=== PATIENT | male | born 1955 | race Caucasian/White ===

== ENCOUNTER 2023-10-17 09:37 | Outpatient (CLI) | payer MEDICARE, OTHER, SELFPAY ==
--- OUTSIDE RECORDS SUMMARY | 2023-10-17 10:19 | XMS RPT_ITS | CCD ---
Author Name Unknown Address [address] [place] [address] [facility] Team Providers Care E Commerce Retailer Name Role Phone Norma Guerrier Unavailable Mila Villaseñor Unavailable Norma Guerrier Unavailable Unavailable MILA VILLASEÑOR Unavailable Unavailab NORMA Lopez Unavailable Unavailable CILIBERTOLINDAEDIS L Unavailable Unavailable TOMNORMA DOCKERY Unavailable Unavailable JODY, TAMELA Unavailable Unavailable TOMCHAKNORMA Unavailable Unavailable COFFING, BALA Unavailable Unavailable TOMCHANORMA Calderon Unavailable Unavailable JODY, TAMELA Unavailable Unavailable TOMCHAKNORMA Unavailable Unavailable JODY, TAMELA Unavailable Unavailable TOMNORMA DOCKERY Unavailable Unavailable SUMAN, MARGO Unavailable Unavailable TOMNORMA DOCKERY Unavailable Unavailable FANPRASHANTH, FRANCISCO JAVIER K Unavailable Unavailable TOMNORMA DOCKERY Unavailable Unavailable FANPRASHANTH, FRANCISCO JAVIER K Unavailable Unavailable NORMA GUERRIER Unavailable Unavailable Mila Villaseñor Unavailable Unavailable Mila Villaseñor Unavailable Unavailable Mila Villaseñor Unavailable Unavailable Mila Villaseñor Unavailable Unavailable Mila Villaseñor Unavailable Unavail le Unavailable Primary Care Provider UnavailNorma Finnegan Primary Care Provider Mila Villaseñor Unavailable [phone] Norma Guerrier Primary Care Provider MILA VILLASEÑOR Attending UnavailNORMA Felix Primary Care Unavailable MILA VILLASEÑOR Attending Unavailab NORMA Lopez Primary Care Unavailable MILA VILLASEÑRO Attending NORMA Delgado Primary Care Unavailable MILA VILLASEÑOR Attending NORMA Delgado Primary Care Unavailable Free, Text Entry Unavailable Mirta Johnson, Dr. Norma Matute Primary Care Unavailbenito Guerrier, Dr. Norma Matute Attending Jose Guerrier, Dr. Norma Matute Primary Care Unavaila lacy Rodriguez, Ms. Mirta Nunn Attending Tayla ashby Pending, Provider Primary Care Unavailable Amira, Angel Pepe Attending Un matthew Guerrier, Dr. Norma Matute Primary Care Unavaila lacy Guerrier, Dr. Norma Matute Attending [facility] lacy Medications Current Medications Medication Drug Class(es) Dates Sig (Normalized) Sig (Original) acetaminophen 325 mg / oxyCODONE hydrochloride 5 mg oral tablet (5 sources) Opioid Agonist Start: 07-28-2017 take 1 tablet by mouth every four hours as needed oxyCODONE-acetamin ophen (PERCOCET) 5-325 mg per tablet Take 1 tablet by mouth every 4 (four) hours as needed. 1-2 tablets every 4 -6 HRS PRN 0 07/28/2017 Active ascorbic acid 250 mg / folic acid 1 mg / iron carbonyl 100 mg / vitamin b12 0.025 mg oral tablet (1 source) Vitamin B12, Vitamin C take 1 tablet by mouth once daily Iron 100 Plus oral tablet ; 1 tab(s) orally once a day Quantity: 0 Refills: 0 Ordered: 04-Feb-2020 Mckenzie Pink Status: Other Generic Substitution Allowed aspirin 325 mg delayed release oral tablet (5 sources) Nonsteroidal Anti-inflammatory Drug Start: 07-27-2017 take 1 tablet by mouth once daily aspirin 325 MG EC tablet Take 325 mg by mouth daily. 0 07/27/2017 Active ferrous sulfate 325 mg oral tablet (7 sources) Start: 07-27-2017 take 1 tablet by mouth once daily at breakfast ferrous sulfate 325 (65 FE) MG tablet Take 325 mg by mouth daily with breakfast. 0 07/27/2017 Active Completed/Discontinued Medications Medication Drug Class(es) Dates Sig (Normalized) Sig (Original) doxycycline hyclate 100 mg oral tablet (1 source) Tetracycline-clas s Drug Start: 12-13-2021 End: 12-19-2021 take 1 tablet by mouth twice daily doxycycline hyclate 100 mg oral tablet ; 1 tab(s) orally 2 times a day Quantity: 14 Refills: 0 Ordered: 13-Dec-2021 Angel Collier Start: 13-Dec-2021 End: 19-Dec-2021 Status: Other Generic Substitution Allowed Comments: Avoid prolonged or excessive exposure to direct and/or artificial sunlight while taking this medication.Do not take this drug if you are .Finish all this medication unless otherwise directed by prescriber.Medicat ion should be taken with plenty of water. Problems Active Problems Problem Classification Problem Date Documented Da te Episodic/Chronic Headache; including migraine (1 source) Headache; including migraine; Translations: [Headache, unspecified] Onset: 12-13-2021 Joint disorders and dislocations; trauma-related (1 source) Derangement of medial meniscus of right knee; Translations: [Meniscus, medial, derangement, right] Osteoarthritis (4 sources) Unilateral primary osteoarthritis, left hip; Translations: [Arthritis of hip] Onset: 07-24-2017 Chronic Other aftercare (2 sources) Aftercare following joint replacement surgery; Translations: [Aftercare following joint replacement surgery] Onset: 07-28-2017 Chronic Other connective tissue disease (2 sources) Presence of left artificial hip joint; Translations: [Presence of left artificial hip joint] Onset: 07-28-2017 Chronic Other upper respiratory infections (1 source) Chronic sinusitis, unspecified; Translations: [Chronic sinusitis, unspecified] Onset: 12-13-2021 Chronic Residual codes; unclassified (1 source) Obstructive sleep apnea syndrome Chronic Residual codes; unclassified (1 source) Edema of lower leg ; Translations: [Edema] 02-11-2022 Episodic Sprains and strains (1 source) Strain of knee; Translations: [Sprains and strains of unspecified site of knee and leg] 02-11-2022 Episodic Unclassified (1 source) Injury of right lower leg; Translations: [Injury of right lower leg, initial encounter] Unclassified (1 source) Contusion of right knee; Translations: [Contusion of right knee, initial encounter] Unclassified (2 sources) [facility]. LEFT KNEE INJURY 02-11-2022 Past or Other Problems Problem Classification Problem Date Documented Da te Episodic/Chronic Other upper respiratory disease (1 source) Nasal congestion; Translations: [Nasal congestion] Onset: 12-13-2021 Episodic Residual codes; unclassified (2 sources) Localized edema; Translations: [Localized edema] Onset: 02-28-2022 Episodic Residual codes; unclassified (2 sources) Edema, unspecified; Translations: [Edema, unspecified] Onset: 02-21-2022 Episodic Unclassified (2 sources) Status post hip replacement, left Unclassified (1 source) Patient encounter status Results Test Name Value Interpretation Reference Range Facil ity Vital Signs Date Time Vital Sign Value Performing Clinician Facility 02-11-2022 12:20-0400 Body height 185.4 cm Text Entry Free [facility] 02-11-2022 12:20-0400 Body temperature 97.34 [degF] Text Entry Free [facility] 02-11-2022 12:20-0400 Diastolic blood pressure 80 mm[Hg] Text Entry Free [facility] 02-11-2022 12:20-0400 Heart rate 78 /min Text Entry Free [facility] 02-11-2022 12:20-0400 SaO2% (BldA) [Mass fraction] 98 % Text Entry Free [facility] 02-11-2022 12:20-0400 Systolic blood pressure 156 mm[Hg] Text Entry Free [facility] 03-27-2020 14:55-0400 BMI (Body Mass Index) 38.92 kg/m2 Milaambika Villaseñor [facility] 03-27-2020 14:55-0400 Body weight 133.81 kg Milaambika Villaseñor [facility] 03-27-2020 14:55-0400 Height 185.4 cm Milaambika Villaseñor [facility] 08-14-2017 08:41-0500 BMI (Body Mass Index) 38 kg/m2 Mila Villaseñor [facility] Work Phone: 08-14-2017 08:41-0500 Height 185.4 cm Mila Villaseñor [facility] Work Phone: 08-14-2017 08:41-0500 Weight 130.64 kg Milaambika Villaseñor [facility] Work Phone: 06-27-2017 10:17-0400 BMI (Body Mass Index) 38.42 kg/m2 Luc Vidal [facility] Work Phone: 06-27-2017 10:17-0400 BP Diastolic 90 mm[Hg] Luc Vidal [employer] Work Phone: 06-27-2017 10:17-0400 BP Systolic 144 mm[Hg] Luc Vidal [employer] Work Phone: 06-27-2017 10:17-0400 Height 185.4 cm Luc Vidal [employer] Work Phone: 06-27-2017 10:17-0400 Pulse (Heart Rate) 56 /min Luc Vidal [employer] Work Phone: 06-27-2017 10:17-0400 Pulse Oximetry 95 % Luc Vidal [employer] Work Phone: 06-27-2017 10:17-0400 Weight 132.09 kg Luc Vidal [employer] Work Phone: 04-24-2017 08:03-0400 BMI (Body Mass Index) 37.6 kg/m2 Mila Villaseñor [employer] Work Phone: 04-24-2017 08:03-0400 BP Diastolic 88 mm[Hg] Mila Villaseñor [employer] Work Phone: 04-24-2017 08:03-0400 BP Systolic 154 mm[Hg] Mila Villaseñor [employer] Work Phone: 04-24-2017 08:03-0400 Height 185.4 cm Mila Villaseñor [employer] Work Phone: 04-24-2017 08:03-0400 Pulse (Heart Rate) 54 /min Mila Villaseñor [employer] Work Phone: 04-24-2017 08:03-0400 Weight 129.28 kg Mila Villaseñor [employer] Work Phone: Encounters Encounter Date Encounter Type Care Provider Facility Start: 02-28-[address] Norma Guerrier Facility:[id number] Start: 02-21-[address] Norma Guerrier Facility:[id number] Start: 02-11-2022 End: 02-11-2022 Emergency department patient visit Mirta Rodriguez [facility] Start: 12-13-2021 End: 12-13-2021 Emergency department patient visit Provider Pending Facility:[id number] Start: 07-14-2021 ambulatory MILA VILLASEÑOR [facility] Start: 12-16-2020 ambulatory MILA DALIA VILLASEÑOR [facility] Start: 11-19-2020 End: 11-19-2020 Orders Only Sarah Garcia Work Phone: [facility] Start: 10-02-2020 ambulatory MILA DALIA VILLASEÑOR [facility] Start: 08-31-2020 ambulatory MILA VILLASEÑOR [facility] Start: 03-27-2020 End: 03-27-2020 Office outpatient new 20 minutes Brefredy Dooley Work Phone: [facility] Procedures Date Procedure Procedure Detail Performing Clinician Start: 08-20-2018 End: 08-20-2018 Radex hip unilateral with pelvis 2-3 views Mila Villaseñor Work Phone: Plan of Treatment Date Care Activity Detail Author Start: 05-19-2020 Influenza vaccination given Sequential Influenza Vaccine (#1) [facility] Start: 07-30-2018 Ambulatory 07/30/2018 Office Visit Mila Echeverria MD [address] [address] [phone] [facility] Start: 05-19-2018 Influenza vaccination SEQUENTIAL INFLUENZA VACCINE (#1) [facility] Start: 09-04-2017 Ambulatory 09/04/2017 Follow-Up Mila Echeverria MD [address] [place] [address] [phone] [facility] Start: 08-15-2017 Ambulatory 08/15/2017 Office Visit Home Health Services Francisco Javier Garvey RN [facility] Start: 07-27-2017 Ambulatory 07/27/2017 Scanned Document Mila Echeverria MD [address] [place], [place] [id number] [facility] Start: 07-27-2017 Inpatient Encounter 07/27/2017 Hospital Encounter Mila Villaseñor MD [address] [address] [phone] [facility] Start: 07-17-2017 Ambulatory 07/17/2017 Surgical Consult Sports Medicine Mila Villaseñor MD [address] [address] [phone] [facility] Start: 2017 Zoster vacc, sc ZOSTER VACCINE [facility] Work Phone: Start: 05-19-2017 Influenza vaccination SEQUENTIAL INFLUENZA VACCINE (#1) [facility] Work Phone: Start: 05-19-2017 SEQUENTIAL INFLUENZA VACCINE (#1) SEQUENTIAL INFLUENZA VACCINE (#1) [facility] Work Phone: Start: 2007 Administration of herpes zoster vaccine Zoster Vaccines (1 of 2) [facility] Start: 2007 Screening for malignant neoplasm of colon [facility] Start: 2007 ZOSTER VACCINES (1 of 2) ZOSTER VACCINES (1 of 2) [facility] Start: 1975 Hepatitis C antibody, confirmatory test Hepatitis C Screening [facility] Start: 1973 COVID-19 Vaccine (1 of 2) COVID-19 Vaccine (1 of 2) [facility] Start: 1972 HIV screening HIV Screening [facility] Start: 1969 Adolescent depression screening assessment Depression Screening (PHQ9) [facility] Start: 1960 History and physical examination, annual for health maintenance Wellness Visit [facility] Start: 1957 Colonoscopy COLONOSCOPY [facility] Work Phone: Start: 1957 Depression screening using PHQ-9 (Patient Health Questionnaire 9) score Depression Screening (PHQ9) [facility] Start: 1957 Prostate specific antigen measurement PSA Level [facility] Start: 1957 Screening for malignant neoplasm of colon Colorectal Cancer Screening: Colonoscopy [facility] Start: 1957 TETANUS EVERY 10 YR TETANUS EVERY 10 YR [facility] Work Phone: Start: 1957 End: 1957 HEPATITIS C SCREENING HEPATITIS C SCREENING [facility] Work Phone: Start: 1957 Screening colonoscopy COLONOSCOPY [facility] Work Phone: Start: 1957 End: 1957 Tetanus vaccination [facility] Work Phone: Payers Date Payer Category Payer Worker's Compensation [employer]ER[employer] [id number] 2020-Present [id number] 2020 Worker's Compensation [id number] 2017 Unknown MMO MED M[employer] S UPER[employer] PPO [id number] 2017-Present [id number] 2017 Unknown [id number] 2016 Private Health Insurance [id number] 1957 Unknown [id number] 1957 Unknown [id number] 1957 Unknown [id number] 1957 Unknown [id number] 903 1957 Unknown [id number] 1957 Unknown [id number] 1069 1957 Unknown [id number] 1069 1957 Unknown [id number] Unknown INDUSTRIAL\INDUSTRIAL Unknown [id number] Social History Date Type Detail Facility Start: 09-04-2017 End: 03-27-2020 Tobacco smoking status NHIS Never smoker [facility] Work Phone: Sex Assigned At Not on file [facility] Work Phone: Start: 03-27-2020 Alcohol intake Current non-dr credit intern of alcohol (finding) [facility] Exposure to SARS-CoV-2 (event) Not sure [facility] Start: 03-27-2020 Tobacco use and exposure Never used [facility] Tobacco smoking consumption unknown [facility] Progress note 09-02-2021 Note Date & Type Note Facility 09-02-2021 Note HNO ID: [id number] Author: Berny Carpenter II, OD Service: ? 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 Replace worn glasses as desired. H25.13 Nuclear sclerotic cataract of both eyes Comment: Trace cataract in both eyes. Well tolerated at this time. Monitor as instructed. H04.123 Dry eye syndrome of bilateral lacrimal glands Comment: Recommend use of Systane Complete 1 gt OU up to qid as needed for relief of symptoms. I have confirmed and edited as necessary the relevant ophthalmic history, ROS, and the neuro exam findings as obtained by others. I have seen and examined John E Abelino. I have discussed the case and the management of this patient's care with the Resident/Fellow, if applicable. I also have reviewed and agree with the assessment and plan as stated above and agree with all of its relevant components. Berny Carpenter II, OD [facility] Assessments Diagnosis Status post hip replacement, left - Primary Diagnosis Status post hip replacement, left - Primary Diagnosis RAO (obstructive sleep apnea ) - Primary Obstructive sleep apnea (adult) (pediatric) Preoperative examination Unspecified pre-operative examination Diagnosis Status post hip replacement, left - Primary Diagnosis Arthritis of left hip - Prim huber Diagnosis Injury of right lower leg, initial encounter Contusion of right knee, initial encounter Meniscus, medial, derangement, right Summary Purpose Family History No Family History Records FoundNo Family History Records FoundNo Family History Records FoundNo Family History Records FoundNo Family History Records Found Advance Directives No Advanced Directives Records FoundDocuments on File Type Date Recorded Patient Senior Planning Analyst Expl anation Advance Directives and Living Will Reason for Referral Status Reason Specialty Diagnoses / Procedures Referred By Contact Referred To Contact Closed Specialty Services Required/Patient 's Best Interest Cardiology Diagnoses Preoperative examination Mila Villaseñor MD [address] [place] [address] History of Present Illness * Luc Vidal, DO - 06/27/2017 10:43 AM EDT Formatting of this note may be different from the original. OFFICE CONSULTATION NOTE [facility] [address] [place] [address] [facility] [address] [facility] [id number] Subjective: John Roca is a 62 y.o. male seen in the office today for Pre-op Exam (Pt is here for a pre-opclearance for a L TKR. Sx date 07/27/17/Kasi. 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 He is in need of a hip replacement. He has severe pain in the left hip. He denies chest pain, chest pressure, palpitations, syncope, nursing, diaphoresis, ankle edema, orthopnea proximal dyspnea. He is able to exert himself to 7 mets without symptoms. EKG shows mild sinus bradycardia heart rate 58 bpm. Is otherwise normal. Assessment & Plan: Low risk for proposed surgery. No further cardiac testing indicated at this time. I be happy to seehim postop if needed. Borderline hypertension. This may be related to increased weight from his decreased activity with his pain. They also may be a component from sleep apnea. I recommended he follow-up with Dr. Isidoro luke to arrange for sleep study. I reviewed with him diet. Once he is through with surgery exercise will increase. If blood pressure remains above 140/90 recommend the use of an angiotensin receptor jazmine or low-dose diuretic for blood pressure treatment. Low-sodium diet is also recommended. Histories: History reviewed. No pertinent past medical history. History reviewed. No pertinent surgical history. Family History Problem Relation Age of Onset Heart attack Mother Heart disease Father Social History Substance Use Topics Smoking status: Never Smoker Smokeless tobacco: Never Used Alcohol use No Current Outpatient Prescriptions on File Prior to Visit Medication Sig meloxicam (MOBIC) 15 MG tablet traMADol (ULTRAM) 50 mg tablet No current facility-administered medications on file prior to visit. No Known Allergies Review of Systems Constitution: Negative for diaphoresis, malaise/fatigue, weight gain and weight loss. HENT: Negative for hearing loss, nosebleeds and tinnitus. Eyes: Negative for blurred vision and visual disturbance. Cardiovascular: Negative for chest pain, claudication, cyanosis, dyspnea on exertion, irregular heartbeat, leg swelling, near-syncope, orthopnea, palpitations, paroxysmal nocturnal dyspnea and syncope. Respiratory: Positive for sleep disturbances due to breathing. Negative for hemoptysis, shortness of breath and snoring. Endocrine: Negative for cold intolerance and heat intolerance. Hematologic/Lymphatic: Does not bruise/bleed easily. Skin: Negative for flushing, poor wound healing and rash. Musculoskeletal: Positive for joint pain. Negative for back pain, muscle weakness and myalgias. Gastrointestinal: Negative for abdominal pain, change in bowel habit, melena, nausea and vomiting. Genitourinary: Negative for hematuria. Neurological: Negative for loss of balance and numbness. Psychiatric/Behavioral: Negative for memory loss. The patient is not nervous/anxious. Objective: Vitals: BP (!) 144/90 Pulse (!) 56 Ht 6' 1 Wt 132.1 kg (291 lb 3.2 oz) SpO2 95% BMI 38.42 kg/m2 Physical Exam Constitutional: He is oriented to person, place, and time. He appears well- developed and well-nourished. No distress. Moderate obesity. HENT: Head: Normocephalic. Mouth/Throat: Oropharynx is clear and moist. Eyes: Conjunctivae and lids are normal. Neck: No JVD present. Carotid bruit is not present. Cardiovascular: Normal rate, regular rhythm, normal heart sounds, intact distal pulses and normal pulses. Exam reveals no gallop. No murmur heard. Pulmonary/Chest: Effort normal and breath sounds normal. Abdominal: Soft. Bowel sounds are normal. He exhibits no mass. There is no hepatosplenomegaly. There is no tenderness. Musculoskeletal: Normal range of motion. He exhibits no edema. Neurological: He is alert and oriented to person, place, and time. Gait normal. Skin: Skin is warm and intact. No rash noted. Psychiatric: He has a normal mood and affect. His behavior is normal. Vitals reviewed. EKG Interpretation: unchanged from previous tracings, sinus bradycardia. SNOMED CT(R) 1. RAO (obstructive sleep apnea) OBSTRUCTIVE SLEEP APNEA SYNDROME 2. Preoperative examination PATIENT ENCOUNTER STATUS Ambulatory referral to Cardiology ECG 12 Lead in this encounter* Mila Villaseñor MD - 08/20/2018 11:55 AM EST Dictation on: 08/20/2018 11:56 AM by: MILA VILLASEÑOR [[id number]] in this encounter* Mila Villaseñor MD - 04/24/2017 11:30 AM EDT Dictation on: 04/24/2017 11:32 AM by: MILA VILLASEÑOR [[id number]] in this encounter* Mila Villaseñor MD - 03/27/2020 5:06 PM EDT Dictation on: 03/27/2020 5:09 PM by: MILA VILLASEÑOR [[id number]] documented in this encounter Additional Source Comments (unrecognized sect ion and content) No Status Records FoundNo Status Records FoundNo Status Records FoundNo Status Records FoundNo Status Records Found INFORMATION SOURCE (unrecogn ized section and content) DATE CREATED AUTHOR AUTHOR'S ORGANIZ ATION 03/13/2018 [facility] DATE CREATED AUTHOR AUTHOR'S ORGANIZ ATION 08/14/2021 [facility] DATE CREATED AUTHOR AUTHOR'S ORGANIZ ATION 12/08/2021 [facility] DATE CREATED AUTHOR AUTHOR'S ORGANIZ ATION 12/02/2022 [facility] Reason for Visit (unrecogniz ed section and content) Status Reason Specialty Diagnoses / Procedures Referred By Contact Referred To Contact Closed Specialty Services Required/Patient 's Best Interest Cardiology Diagnoses Preoperative examination Mila Villaseñor MD [address] [place] [id number] Reason Comments Follow-up Reason Comments Pain Status Reason Specialty Diagnoses / Procedures Referred By Contact Referred To Contact Closed Sports Medicine Diagnoses Injury of right lower leg, initial encounter Contusion of right knee, initial encounter Sprain of other specified parts of right knee, initial encounter Bre Dooley, CUSTOMER CARE ASSOCIATE [address] [place] [id number] Mila Villaseñor MD [address] [place] [id number] <item> Privacy Markings (unrecogniz ed section and content) Section Author: Yovana Mckenna PROHIBITION ON REDISCLOSURE OF CONFIDENTIAL INFORMATION This notice accompanies a disclosure of information concerning a client made to you with the consent of such client. FOR RECORDS PERTAINING TO PATIENTS WHO ARE OR HAVE BEEN ENROLLED IN A CHEMICAL DEPENDENCY/SUBSTANCEABUSE PROGRAM, SOME INFORMATION MAY BE OMITTED. This clinical summary was aggregated from multiple sources. Caution should be exercised in using it in the provision of clinical care. This summary normalizes information from multiple sources, and as a consequence, information in this document may materially change the coding, format and clinical context of patient data. In addition, data may be omitted in some cases. CLINICAL DECISIONS SHOULD BE BASED ON THE PRIMARY CLINICAL RECORDS. [email or web address] provides no warranty or guarantee of the accuracy or completeness of information in this document.
[2023-10-17 12:12] LABS: Absolute Lymphocyte Count 1.27 X10^3/uL (0.83-4.51); Absolute Neutrophil Count 3.1 X10^3/uL (2.0-7.7); Basophil# 0.07 X10^3/uL; Basophil% 1.3 % (0-1); Eosinophil# 0.18 X10^3/uL; Eosinophils% 3.4 % (0-5); Hematocrit 42.9 % (40-54); Hemoglobin 13.8 g/dL (13.0-16.5); Lymphocyte # 1.27 X10^3/ul (0.83-4.51); Lymphocyte % 24.1 % (19-41); Mean Corp Hgb Conc 32.2 g/dL (32-36); Mean Corpuscular Hgb 27.3 pg (27.0-32.0); Mean Platelet Vol. 10.3 fl (6.2-12.0); Monocyte# 0.66 X10^3/uL; Monocyte% 12.5 % (0-10); NRBC Flagged by Analyzer 0 % (0-5); Neutrophil # 3.07 X10^3/uL (2.7-7.7); Neutrophil % 58.1 % (47-70); Platelet Count 179 K/mm3 (150-450); RBC Distribution Width CV 13.3 % (11.6-14.6); RBC Distribution Width SD 41.4 fl (35.1-43.9); Red Blood Count 5.05 M/mm3 (4.6-6.2); White Blood Count 5.3 K/mm3 (4.4-11.0)
[2023-10-17 13:02] LABS: AST(SGOT) 21 U/L (15-37); Alanine Aminotransfer ALT/SGPT 28 U/L (16-61); Albumin, Serum 3.8 g/dL (3.2-5.0); Alkaline Phosphatase 80 U/L (45-117); Anion Gap 5 (5-15); BUN 16 mg/dL (7-18); BUN/Creat Ratio 14.4 RATIO (10-20); Calcium,Total 9.4 mg/dL (8.5-10.1); Chloride 108 mmol/L (98-107); Cholesterol 151 mg/dL (200); Creatinine, Serum 1.11 mg/dL (0.70-1.30); EST Glomerular Filtration Rate 70 mL/min (>60); Est Glom Filt Rate - Afr Amer 85 mL/min (>60); Globulin 3.8 g/dL (2.2-4.2); Glucose 109 mg/dL (74-106); High Density Lipoprotein 63 mg/dL; PSA,Total- Diagnostic 0.84 ng/mL (0.0-4.0); Potassium 4.5 mmol/L (3.5-5.1); Protein, Total 7.6 g/dL (6.4-8.2); Sodium Level 139 mmol/L (136-145); Thyroid Stim Hormone (TSH) 1.91 uIU/mL (0.358-3.74); Triglycerides 77 mg/dL; Very Low Density Lipoprotein 15 mg/dL (5-40)
== END 2023-10-17 23:59 | disposition home or self-care (01) ==
LOC: BIMLAB 09:40
PROVIDERS: PCP Internal Medicine; Referring Provider Internal Medicine; Visit Provider Internal Medicine
DX: N52.9 Male erectile dysfunction, unspecified (principal); I10 Essential (primary) hypertension; E78.2 Mixed hyperlipidemia; Z12.5 Encounter for screening for malignant neoplasm of prostate
CPT/HCPCS: 36415; 80053; 80061; 84153; 84443; 85025

== ENCOUNTER → 2024-04-09 | Outpatient (CLI) | payer MEDICARE, OTHER, SELFPAY ==
[2024-04-09 11:55] LABS: Absolute Lymphocyte Count 1.41 X10^3/uL (0.83-4.51); Absolute Neutrophil Count 3.1 X10^3/uL (2.0-7.7); Basophil# 0.08 X10^3/uL; Basophil% 1.5 % (0-1); Eosinophil# 0.15 X10^3/uL; Eosinophils% 2.8 % (0-5); Hematocrit 42.1 % (40-54); Hemoglobin 13.5 g/dL (13.0-16.5); Lymphocyte # 1.41 X10^3/ul (0.83-4.51); Lymphocyte % 26.2 % (19-41); Mean Corp Hgb Conc 32.1 g/dL (32-36); Mean Corpuscular Hgb 27.2 pg (27.0-32.0); Mean Corpuscular Volume 84.9 fL (80-94); Mean Platelet Vol. 10.1 fl (6.2-12.0); Monocyte# 0.57 X10^3/uL; Monocyte% 10.6 % (0-10); NRBC Flagged by Analyzer 0 % (0-5); Neutrophil # 3.14 X10^3/uL (2.7-7.7); Neutrophil % 58.3 % (47-70); Platelet Count 208 K/mm3 (150-450); RBC Distribution Width CV 13.5 % (11.6-14.6); RBC Distribution Width SD 41.8 fl (35.1-43.9); Red Blood Count 4.96 M/mm3 (4.6-6.2); White Blood Count 5.4 K/mm3 (4.4-11.0)
[2024-04-09 12:40] LABS: AST(SGOT) 27 U/L (15-37); Alanine Aminotransfer ALT/SGPT 27 U/L (16-61); Albumin, Serum 3.8 g/dL (3.2-5.0); Alkaline Phosphatase 83 U/L (45-117); Anion Gap 5 (5-15); BUN 22 mg/dL (7-18); BUN/Creat Ratio 19.1 RATIO (10-20); Calcium,Total 9.5 mg/dL (8.5-10.1); Chloride 106 mmol/L (98-107); Creatinine, Serum 1.15 mg/dL (0.70-1.30); EST Glomerular Filtration Rate 68 mL/min (>60); Est Glom Filt Rate - Afr Amer 82 mL/min (>60); Globulin 3.8 g/dL (2.2-4.2); Glucose 118 mg/dL (74-106); Potassium 3.9 mmol/L (3.5-5.1); Protein, Total 7.6 g/dL (6.4-8.2); Sodium Level 139 mmol/L (136-145)
[2024-04-13 11:08] LABS: Testosterone, % Free 2.49 % (1.50-4.20); Testosterone, Free 7.64 ng/dL (5.00-21.00); Testosterone, Total 307 ng/dL (264-916)
== END | disposition home or self-care (01) ==
LOC: BIMLAB 09:11
PROVIDERS: PCP Internal Medicine; Referring Provider Nurse Practitioner; Visit Provider Nurse Practitioner
DX: N52.9 Male erectile dysfunction, unspecified (principal); I10 Essential (primary) hypertension; G47.30 Sleep apnea, unspecified
CPT/HCPCS: 36415; 80053; 84402; 84403; 85025

== ENCOUNTER → 2025-01-27 | Outpatient (CLI) | payer MEDICARE, OTHER, SELFPAY ==
[2025-01-27 12:38] LABS: Absolute Lymphocyte Count 1.26 X10^3/uL (0.83-4.51); Absolute Neutrophil Count 2.8 X10^3/uL (2.0-7.7); Basophil# 0.05 X10^3/uL; Eosinophil# 0.13 X10^3/uL; Eosinophils% 2.7 % (0-5); Hematocrit 40.8 % (40-54); Hemoglobin 13.2 g/dL (13.0-16.5); Lymphocyte # 1.26 X10^3/ul (0.83-4.51); Lymphocyte % 25.8 % (19-41); Mean Corp Hgb Conc 32.4 g/dL (32-36); Mean Corpuscular Hgb 27.4 pg (27.0-32.0); Mean Corpuscular Volume 84.6 fL (80-94); Mean Platelet Vol. 10.2 fl (6.2-12.0); Monocyte# 0.63 X10^3/uL; Monocyte% 12.9 % (0-10); NRBC Flagged by Analyzer 0 % (0-5); Neutrophil % 57.2 % (47-70); Platelet Count 169 K/mm3 (150-450); RBC Distribution Width CV 13.6 % (11.6-14.6); RBC Distribution Width SD 42.2 fl (35.1-43.9); Red Blood Count 4.82 M/mm3 (4.6-6.2); White Blood Count 4.9 K/mm3 (4.4-11.0)
[2025-01-27 12:53] LABS: ALB/GLOB Ratio 1.4 RATIO (0.9-2.4); AST(SGOT) 27 U/L (<=37); Alanine Aminotransfer ALT/SGPT 20 U/L (<=46); Albumin, Serum 4.2 g/dL (3.4-4.8); Alkaline Phosphatase 76 U/L (40-129); Anion Gap 11 (5-15); BUN 18 mg/dL (4-19); BUN/Creat Ratio 20.2 RATIO (10-20); Calcium,Total 9.3 mg/dL (7.6-11.0); Carbon Dioxide 22.2 mmol/L (21.0-32.0); Chloride 108 mmol/L (98-108); Cholesterol 136 mg/dL (<=200); Creatinine, Serum 0.87 mg/dL (0.70-1.20); EST Glomerular Filtration Rate 95 (>60); Globulin 2.9 g/dL (2.2-4.2); Glucose 117 mg/dL (70-99); High Density Lipoprotein 54 mg/dL; Low Density Lipoprotein Calc. 69 mg/dL; Potassium 4.5 mmol/L (3.3-5.1); Sodium Level 141 mmol/L (133-145); Total Bilirubin 0.56 mg/dL (0.00-1.30); Triglycerides 64 mg/dL; Very Low Density Lipoprotein 13 mg/dL (5-40); cholesterol:hdl ratio screen 2.52
[2025-01-27 12:56] LABS: Hemoglobin A1c 5.9 % (<=5.6)
== END | disposition home or self-care (01) ==
LOC: BIMLAB 08:44
PROVIDERS: PCP Internal Medicine; Referring Provider Internal Medicine; Visit Provider Internal Medicine
DX: I10 Essential (primary) hypertension (principal); E78.2 Mixed hyperlipidemia; R73.09 Other abnormal glucose
CPT/HCPCS: 36415; 80053; 80061; 83036; 85025